=== PATIENT | female | born 1965 | race Hispanic/Latino ===

== ENCOUNTER 2017-10-16 15:29 | Emergency (ER) | payer OTHER ==
[2017-10-16 15:47] LABS: BASOPHILS % (AUTO) 1.3 % (0.0-5.0); EOSINOPHILS % (AUTO) 1.8 % (0.0-8.0); HEMATOCRIT 31.5 % (36-48); LYMPHOCYTES % (AUTO) 15.9 % (21.0-51.0); MEAN CORPUSCULAR HEMOGLOBIN 36.7 pg (27.0-33.0); MEAN CORPUSCULAR HGB CONC 35.3 g/dL (32.0-36.0); MEAN CORPUSCULAR VOLUME 103.7 fL (79-99); MONOCYTES % (AUTO) 9.5 % (3.0-13.0); NEUTROPHILS % (AUTO) 71.5 % (40.0-77.0); PLATELET COUNT (AUTO) 94 K/uL (130-400); RED BLOOD CELL COUNT(AUTO) 3.04 MIL/uL (4.00-5.50); RED CELL DISTRIBUTION WIDTH 15.6 % (11.0-15.5)
[2017-10-16 16:20] LABS: CREATININE 0.6 mg/dL (0.5-1.5); POTASSIUM 3.8 mmol/L (3.5-5.1)
[2017-10-16 16:28] LABS: ALBUMIN 1.7 g/dL (3.5-5.0); BILIRUBIN,TOTAL 7.1 mg/dL (0.2-1.0); TOTAL PROTEIN, SERUM 7.4 g/dL (6.0-8.3)
[2017-10-16 16:42] LABS: INR 1.88 (0.85-1.15); PARTIAL THROMBOPLASTIN TIME 43.1 SEC (26.3-35.5); PROTHROMBIN TIME 19.5 SEC (9.6-11.6)
[2017-10-16] MEDS ORDERED: IOPAMIDOL-370 75 ML VIAL IV ONE (18:44)
[2018-01-12] MEDS ORDERED: SPIR50TA3 PO (17:17)
== END 2017-10-16 21:43 | disposition home or self-care (01) ==
LOC: EDH 15:29
DX: K74.69 Other cirrhosis of liver (principal); R18.8 Other ascites; K80.50 Calculus of bile duct without cholangitis or cholecystitis without obstruction; Z88.6 Allergy status to analgesic agent; Z79.899 Other long term (current) drug therapy; Z90.722 Acquired absence of ovaries, bilateral
CPT/HCPCS: 36415; 74177; 76700; 80053; 82140; 84484; 85025; 85610; 85730; 93005; 99285; Q9967

== ENCOUNTER 2017-10-23 00:11 | Inpatient (IN) | payer OTHER ==
[~2017-10-23] VITALS: Ht 165.1 cm; Wt 111.0 kg
[2017-10-23] MEDS ORDERED: SODIUM CHLORIDE 0.9% 1000ML 1,000 ML IV ONE (01:16)
[2017-10-23] MEDS ORDERED: PANTOPRAZOLE SODIUM 40 MG TABLET.DR PO ONE (01:16)
[2017-10-23 01:20] LABS: RED CELL DISTRIBUTION WIDTH 15.4 % (11.0-15.5)
[2017-10-23 01:26] LABS: BASOPHILS % (AUTO) 1.4 % (0.0-5.0); EOSINOPHILS % (AUTO) 3.4 % (0.0-8.0); HEMATOCRIT 29.7 % (36-48); LYMPHOCYTES % (AUTO) 19.2 % (21.0-51.0); MEAN CORPUSCULAR HEMOGLOBIN 36.2 pg (27.0-33.0); MEAN CORPUSCULAR VOLUME 103.5 fL (79-99); MONOCYTES % (AUTO) 12.2 % (3.0-13.0); NEUTROPHILS % (AUTO) 63.8 % (40.0-77.0); PLATELET COUNT (AUTO) 97 K/uL (130-400); RED BLOOD CELL COUNT(AUTO) 2.87 MIL/uL (4.00-5.50); WHITE BLOOD COUNT (AUTO) 7.2 K/uL (4.8-10.8)
[2017-10-23 01:31] LABS: CREATININE 0.6 mg/dL (0.5-1.5); INR 1.9 (0.85-1.15); PARTIAL THROMBOPLASTIN TIME 47.1 SEC (26.3-35.5); POTASSIUM 3.6 mmol/L (3.5-5.1); PROTHROMBIN TIME 19.7 SEC (9.6-11.6)
[2017-10-23 01:36] LABS: ALBUMIN 1.7 g/dL (3.5-5.0); BILIRUBIN,TOTAL 6.6 mg/dL (0.2-1.0); TOTAL PROTEIN, SERUM 7.5 g/dL (6.0-8.3)
[2017-10-23 03:48] VITALS: BP 125/85
[2017-10-23] MEDS ORDERED: AMOX500C2 PO (05:43)
[2017-10-23] MEDS ORDERED: SODIUM CHLORIDE 0.9% 1000ML 1,000 ML IV SCH (05:49)
[2017-10-23] MEDS ORDERED: MEPERIDINE-PF 25 MG/ML SYG IV PRN (06:00)
[2017-10-23 08:00] VITALS: BP 114/59
[2017-10-23 11:31] VITALS: BP 116/76
[2017-10-23 12:03] LABS: BASOPHILS % (AUTO) 1.1 % (0.0-5.0); EOSINOPHILS % (AUTO) 3.5 % (0.0-8.0); HEMATOCRIT 26.3 % (36-48); LYMPHOCYTES % (AUTO) 22.3 % (21.0-51.0); MEAN CORPUSCULAR HEMOGLOBIN 37.3 pg (27.0-33.0); MEAN CORPUSCULAR HGB CONC 36.4 g/dL (32.0-36.0); MEAN CORPUSCULAR VOLUME 102.5 fL (79-99); MONOCYTES % (AUTO) 13.8 % (3.0-13.0); NEUTROPHILS % (AUTO) 59.3 % (40.0-77.0); PLATELET COUNT (AUTO) 84 K/uL (130-400); RED BLOOD CELL COUNT(AUTO) 2.56 MIL/uL (4.00-5.50); RED CELL DISTRIBUTION WIDTH 15.4 % (11.0-15.5); WHITE BLOOD COUNT (AUTO) 6.2 K/uL (4.8-10.8)
[2017-10-23] MEDS: PANTOPRAZOLE 40 MG/VIAL IVP SCH (12:16)
[2017-10-23] MEDS: PHYTONADIONE 10 MG/1 ML AMP SQ SCH ×2 (12:38→21:20)
[2017-10-23 15:36] VITALS: BP 137/75
[2017-10-23 19:00] VITALS: BP 125/68
[2017-10-23 23:00] VITALS: BP 105/58
[2017-10-24] MEDS: DEXTROSE 5 % AND 0.9 % NACL 1,000 ML IV SCH ×2 (00:07→11:27)
[2017-10-24 03:00] VITALS: BP 128/73
[2017-10-24 04:11] LABS: HEMATOCRIT 25.5 % (36-48); MEAN CORPUSCULAR HEMOGLOBIN 36.3 pg (27.0-33.0); MEAN CORPUSCULAR VOLUME 103.8 fL (79-99); PLATELET COUNT (AUTO) 89 K/uL (130-400); RED BLOOD CELL COUNT(AUTO) 2.46 MIL/uL (4.00-5.50); RED CELL DISTRIBUTION WIDTH 15.5 % (11.0-15.5); WHITE BLOOD COUNT (AUTO) 7.6 K/uL (4.8-10.8)
[2017-10-24 04:13] LABS: INR 1.92 (0.85-1.15); PARTIAL THROMBOPLASTIN TIME 48.7 SEC (26.3-35.5); PROTHROMBIN TIME 19.9 SEC (9.6-11.6)
[2017-10-24 04:20] LABS: CREATININE 0.7 mg/dL (0.5-1.5); POTASSIUM 3.5 mmol/L (3.5-5.1)
[2017-10-24 05:21] LABS: EOSINOPHILS % (MANUAL) 5 % (1-6); LYMPHOCYTES % (MANUAL) 19 % (22-44); MAN.DIFF COMMENT-IMPRESSION MANUAL DIFFERENTIAL; MONOCYTES % (MANUAL) 7 % (2-9); REACTIVE LYMPHOCYTES 3 % (0-0); SEGMENTED NEUTROPHILS % 66 % (40-70)
[2017-10-24] MEDS ORDERED: POTASSIUM CHLORIDE 20MEQ/100ML 100 ML IV PRN (07:00)
[2017-10-24] MEDS ORDERED: POTASSIUM CHLORIDE 10% ELIXIR 20 MEQ/15 ML UDCUP PO PRN (07:00)
[2017-10-24] MEDS ORDERED: POTASSIUM CHLORIDE 20 MEQ ERTAB PO PRN (07:00)
[2017-10-24] MEDS ORDERED: LIDOCAINE HCL-MPF 1% 2ML VIAL IVP PRN (07:00)
[2017-10-24 07:40] VITALS: BP 121/57
[2017-10-24] MEDS: PANTOPRAZOLE 40 MG/VIAL IVP SCH (11:15)
[2017-10-24] MEDS: PHYTONADIONE 10 MG/1 ML AMP SQ SCH (11:17)
[2017-10-24 11:49] VITALS: BP 132/82
[2017-10-24] MEDS ORDERED: GUAIFENESIN SUGAR-FREE 100 MG/5 ML UDCUP PO PRN (13:15)
[2017-10-24] MEDS ORDERED: AMOXICILLIN 500 MG CAPSULE PO SCH (14:00)
[2017-10-24] MEDS ORDERED: NEOMYCIN/POLYMYXIN/HC OTIC SUSP 10ML BOTTLE AU SCH (14:00)
[2018-01-12] MEDS ORDERED: SPIR50TA3 PO (17:17)
== END 2017-10-24 17:54 | disposition home or self-care (01) | DRG 920 ==
LOC: EDH 00:11 → 3BH 00:12
PROVIDERS: ADMIT Family Medicine; ATTEND Family Medicine
DX: K91.840 Postprocedural hemorrhage of a digestive system organ or structure following a digestive system procedure (principal); D68.9 Coagulation defect, unspecified; D69.6 Thrombocytopenia, unspecified; K70.30 Alcoholic cirrhosis of liver without ascites; D64.9 Anemia, unspecified; Y83.8 Other surgical procedures as the cause of abnormal reaction of the patient, or of later complication, without mention of misadventure at the time of the procedure; H92.20 Otorrhagia, unspecified ear; K64.9 Unspecified hemorrhoids; Z91.19 Patient's noncompliance with other medical treatment and regimen
CPT/HCPCS: 36415; 80048; 80053; 82270; 85025; 85610; 85730; 86850; 86900; 86901; C9113; J3430; J7030; J7042

== ENCOUNTER 2017-11-10 13:32 | Inpatient (IN) | payer OTHER ==
[~2017-11-10] VITALS: Ht 162.6 cm; Wt 110.6 kg
[~2017-11-10 13:32] MED LIST: AMOX500C2 PO
[2017-11-10 14:30] LABS: INR 1.97 (0.85-1.15); PARTIAL THROMBOPLASTIN TIME 46.8 SEC (26.3-35.5); PROTHROMBIN TIME 20.4 SEC (9.6-11.6)
[2017-11-10 14:39] LABS: ALBUMIN 1.8 g/dL (3.5-5.0); BILIRUBIN,TOTAL 12.9 mg/dL (0.2-1.0); CREATINE KINASE MB 0.6 ng/mL (0.5-3.6); CREATININE 0.8 mg/dL (0.5-1.5); TOTAL PROTEIN, SERUM 7.9 g/dL (6.0-8.3)
[2017-11-10 14:48] LABS: BASOPHILS % (AUTO) 0.6 % (0.0-5.0); EOSINOPHILS % (AUTO) 1.2 % (0.0-8.0); HEMATOCRIT 30.4 % (36-48); LYMPHOCYTES % (AUTO) 10.2 % (21.0-51.0); MEAN CORPUSCULAR HEMOGLOBIN 36.2 pg (27.0-33.0); MEAN CORPUSCULAR VOLUME 103.4 fL (79-99); MONOCYTES % (AUTO) 12.1 % (3.0-13.0); NEUTROPHILS % (AUTO) 75.9 % (40.0-77.0); NUCLEATED RED BLOOD CELLS 0.1 % (0.0-0.19); PLATELET COUNT (AUTO) 85 K/uL (130-400); RED BLOOD CELL COUNT(AUTO) 2.94 MIL/uL (4.00-5.50); RED CELL DISTRIBUTION WIDTH 16.2 % (11.0-15.5); WHITE BLOOD COUNT (AUTO) 11.2 K/uL (4.8-10.8)
[2017-11-10 14:48] LABS: POTASSIUM 2.5 mmol/L (3.5-5.1)
[2017-11-10] MEDS ORDERED: PHYTONADIONE 10 MG/1 ML AMP ONE (17:32)
[2017-11-10] MEDS ORDERED: CEFTRIAXONE SODIUM 1 GM ONE (17:32)
[2017-11-10] MEDS ORDERED: LEVOFLOXACIN 500 MG TABLET ONE (17:32)
[2017-11-10] MEDS ORDERED: FAMOTIDINE 20MG TAB 20 MG TAB ONE (21:46)
[2017-11-10] MEDS ORDERED: ALPRAZOLAM 0.25 MG TABLET ONE (21:47)
[2017-11-10] MEDS ORDERED: SODIUM CHLORIDE 0.9% 10 ML VIAL IVP SCH (23:45)
[2017-11-10] MEDS ORDERED: DEXTROSE 50%-WATER 50 ML DISP.SYRIN IV PRN (23:45)
[2017-11-10] MEDS ORDERED: ALPRAZOLAM 0.25 MG TABLET PO SCH (23:45)
[2017-11-10] MEDS ORDERED: ONDANSETRON HCL 4 MG/2 ML VIAL IVP PRN (23:45)
[2017-11-10] MEDS ORDERED: GLUCAGON 1MG KIT 1 MG ML IM PRN (23:45)
[2017-11-11] VITALS (14 sets, daily range): BP systolic 116–146; BP diastolic 52–75
[2017-11-11] MEDS ORDERED: TURM500C9 PO (02:12)
[2017-11-11] MEDS ORDERED: MILK175C4 PO (02:12)
[2017-11-11] MEDS: LIDOCAINE HCL-MPF 1% 2ML VIAL IJ PRN ×2 (03:12→09:45)
[2017-11-11] MEDS: POTASSIUM CHLORIDE 20MEQ/100ML 100 ML IV PRN ×2 (03:12→09:45)
[2017-11-11] MEDS: LACTULOSE 20 GM/30 ML UDCUP PO PRN ×2 (03:13→07:52)
[2017-11-11 06:18] LABS: INR 2.02 (0.85-1.15); PROTHROMBIN TIME 20.9 SEC (9.6-11.6)
[2017-11-11] MEDS ORDERED: FAMOTIDINE 20MG TAB 20 MG TAB PO SCH (09:00)
[2017-11-11 15:06] LABS: HEMATOCRIT 27.3 % (36-48); MEAN CORPUSCULAR HEMOGLOBIN 37.2 pg (27.0-33.0); MEAN CORPUSCULAR HGB CONC 36.4 g/dL (32.0-36.0); MEAN CORPUSCULAR VOLUME 102.1 fL (79-99); NUCLEATED RED BLOOD CELLS 0.2 % (0.0-0.19); PLATELET COUNT (AUTO) 91 K/uL (130-400); RED BLOOD CELL COUNT(AUTO) 2.67 MIL/uL (4.00-5.50); RED CELL DISTRIBUTION WIDTH 16.3 % (11.0-15.5); WHITE BLOOD COUNT (AUTO) 11.3 K/uL (4.8-10.8)
[2017-11-11 15:15] LABS: CREATININE 0.8 mg/dL (0.5-1.5)
[2017-11-11 15:27] LABS: INR 2.02 (0.85-1.15); PROTHROMBIN TIME 20.9 SEC (9.6-11.6)
[2017-11-11] MEDS ORDERED: ZOSYN 3.375GM+NS 50ML 50 ML IV SCH (15:45)
[2017-11-11] MEDS ORDERED: SODIUM CHLORIDE 0.9% 500ML 500 ML IV ONE (16:07)
[2017-11-11 16:18] LABS: LYMPHOCYTES % (MANUAL) 5 % (22-44); MAN.DIFF COMMENT-IMPRESSION MANUAL DIFFERENTIAL; METAMYELOCYTES % 1 % (0-0); MONOCYTES % (MANUAL) 7 % (2-9); SEGMENTED NEUTROPHILS % 87 % (40-70)
[2017-11-11 16:19] LABS: PLATELET MORPHOLOGY COMMENT DECREASED
[2017-11-11] MEDS ORDERED: ALBUMIN (HUMAN) 25% 200 ML IV ONE (18:30)
[2017-11-11 21:14] LABS: APPEARANCE BODY FLUID SLIGHTLY CLOUDY (CLEAR); COLOR,BODY FLUID YELLOW (LT YELLOW); SPECIMENTYPE,BODY FLUID ASCITES; TOTAL VOLUME,BODY FLUID 1000 mL
[2017-11-11 21:15] LABS: BODY FLUID RBC 375 /cu. mm.; BODY FLUID WBC 253 /cu. mm.
[2017-11-11 21:37] LABS: BF LYMPHOCYTE 28 %; BF MESOTHELIAL 2 %
[2017-11-11] MEDS: SUCRALFATE 1 GM TABLET PO SCH (21:47)
[2017-11-11] MEDS: MEROPENEM 1 GM VIAL IVP SCH (23:59)
[2017-11-12] VITALS: BP 119/60
[2017-11-12 04:00] VITALS: BP 107/54
[2017-11-12 05:04] LABS: HEMATOCRIT 23.9 % (36-48); MEAN CORPUSCULAR HEMOGLOBIN 36.6 pg (27.0-33.0); MEAN CORPUSCULAR HGB CONC 35.8 g/dL (32.0-36.0); MEAN CORPUSCULAR VOLUME 102.2 fL (79-99); NUCLEATED RED BLOOD CELLS 0.1 % (0.0-0.19); PLATELET COUNT (AUTO) 82 K/uL (130-400); RED BLOOD CELL COUNT(AUTO) 2.34 MIL/uL (4.00-5.50); RED CELL DISTRIBUTION WIDTH 16.2 % (11.0-15.5); WHITE BLOOD COUNT (AUTO) 9.3 K/uL (4.8-10.8)
[2017-11-12 05:09] LABS: INR 1.83 (0.85-1.15)
[2017-11-12 05:10] LABS: CREATININE 0.7 mg/dL (0.5-1.5)
[2017-11-12 05:19] LABS: BAND NEUTROPHILS % (MANUAL) 2 % (0-2); BASOPHILS % (MANUAL) 1 % (0-2); EOSINOPHILS % (MANUAL) 1 % (1-6); LYMPHOCYTES % (MANUAL) 16 % (22-44); MAN.DIFF COMMENT-IMPRESSION MANUAL DIFFERENTIAL; MONOCYTES % (MANUAL) 3 % (2-9); PLATELET MORPHOLOGY COMMENT DECREASED; SEGMENTED NEUTROPHILS % 77 % (40-70)
[2017-11-12 05:26] LABS: POTASSIUM 2.5 mmol/L (3.5-5.1)
[2017-11-12] MEDS: POTASSIUM CHLORIDE 20MEQ/100ML 100 ML IV PRN ×2 (05:36→09:11)
[2017-11-12] MEDS: POTASSIUM CHLORIDE 20 MEQ ERTAB PO PRN ×3 (05:37→13:00)
[2017-11-12] MEDS: LIDOCAINE HCL-MPF 1% 2ML VIAL IJ PRN ×2 (05:37→09:10)
[2017-11-12 08:05] VITALS: BP 110/63
[2017-11-12] MEDS: SUCRALFATE 1 GM TABLET PO SCH ×3 (09:09→20:18)
[2017-11-12] MEDS: PANTOPRAZOLE SODIUM 40 MG TABLET.DR PO SCH (09:09)
[2017-11-12] MEDS: MEROPENEM 1 GM VIAL IVP SCH ×2 (09:11→17:13)
[2017-11-12 12:04] VITALS: BP 124/69
[2017-11-12] MEDS: MAGNESIUM 2GM PREMIX 50ML 50 ML IV SCH (14:58)
[2017-11-12 16:41] VITALS: BP 124/63
[2017-11-12] MEDS: POTASSIUM CHLORIDE 10% ELIXIR 20 MEQ/15 ML UDCUP PO PRN (17:14)
[2017-11-12 20:00] VITALS: BP 114/66
[2017-11-13] VITALS: BP 126/65
[2017-11-13] MEDS: MEROPENEM 1 GM VIAL IVP SCH ×4 (00:03→23:42)
[2017-11-13 04:00] VITALS: BP 125/65
[2017-11-13] MEDS ORDERED: ONDANSETRON HCL MDV 20ML 2 MG/ML VIAL ONE (04:28)
[2017-11-13 05:01] LABS: HEMATOCRIT 25.4 % (36-48); MEAN CORPUSCULAR HEMOGLOBIN 37.9 pg (27.0-33.0); MEAN CORPUSCULAR HGB CONC 36.4 g/dL (32.0-36.0); MEAN CORPUSCULAR VOLUME 104.2 fL (79-99); NUCLEATED RED BLOOD CELLS 0.2 % (0.0-0.19); PLATELET COUNT (AUTO) 94 K/uL (130-400); RED BLOOD CELL COUNT(AUTO) 2.44 MIL/uL (4.00-5.50); RED CELL DISTRIBUTION WIDTH 16.3 % (11.0-15.5); WHITE BLOOD COUNT (AUTO) 13.2 K/uL (4.8-10.8)
[2017-11-13 05:06] LABS: CREATININE 0.7 mg/dL (0.5-1.5); MAGNESIUM 1.8 mg/dL (1.80-2.40)
[2017-11-13 05:16] LABS: BAND NEUTROPHILS % (MANUAL) 1 % (0-2); LYMPHOCYTES % (MANUAL) 11 % (22-44); MAN.DIFF COMMENT-IMPRESSION MANUAL DIFFERENTIAL; MONOCYTES % (MANUAL) 10 % (2-9); SEGMENTED NEUTROPHILS % 78 % (40-70)
[2017-11-13 05:17] LABS: PLATELET MORPHOLOGY COMMENT DECREASED
[2017-11-13] MEDS: POTASSIUM CHLORIDE 20MEQ/100ML 100 ML IV PRN (05:58)
[2017-11-13] MEDS: LIDOCAINE HCL-MPF 1% 2ML VIAL IJ PRN (05:58)
[2017-11-13] MEDS: POTASSIUM CHLORIDE 10% ELIXIR 20 MEQ/15 ML UDCUP PO PRN ×4 (05:59→20:25)
[2017-11-13 08:11] VITALS: BP 103/47
[2017-11-13] MEDS: SUCRALFATE 1 GM TABLET PO SCH (09:00)
[2017-11-13] MEDS: PANTOPRAZOLE SODIUM 40 MG TABLET.DR PO SCH (09:26)
[2017-11-13] MEDS: MAGNESIUM 2GM PREMIX 50ML 50 ML IV SCH (09:59)
[2017-11-13] MEDS ORDERED: MAGNESIUM 2GM PREMIX 50ML 50 ML IV SCH (10:00)
[2017-11-13] MEDS ORDERED: PHARMACY COMMUNICATION MISC SCH ×2 (10:00→13:30)
[2017-11-13 12:00] VITALS: BP 103/45
[2017-11-13] MEDS: SUCRALFATE 1 GM/10 ML PO SCH ×2 (12:48→20:24)
[2017-11-13] MEDS: MEPERIDINE HCL/PF 25 MG/0.5 ML AMPUL IVP PRN ×3 (13:00→23:43)
[2017-11-13] MEDS ORDERED: MAGIC MOUTH WASH PO PRN ×3 (13:45)
[2017-11-13 16:00] VITALS: BP 114/63
[2017-11-13] MEDS ORDERED: MAG HYDROX/AL HYDROX/SIMETH ES 30 ML SUSP UDCUP ONE (17:50)
[2017-11-13] MEDS ORDERED: MAG HYDROX/AL HYDROX/SIMETH ES 30 ML SUSP UDCUP PO PRN (18:00)
[2017-11-13 19:48] VITALS: BP 120/65
[2017-11-14] VITALS (7 sets, daily range): BP systolic 101–129; BP diastolic 48–71
[2017-11-14 04:45] LABS: CREATININE 0.8 mg/dL (0.5-1.5); POTASSIUM 4.1 mmol/L (3.5-5.1)
[2017-11-14 04:56] LABS: MEAN CORPUSCULAR HEMOGLOBIN 36.3 pg (27.0-33.0); MEAN CORPUSCULAR HGB CONC 34.6 g/dL (32.0-36.0); NUCLEATED RED BLOOD CELLS 0.1 % (0.0-0.19); PLATELET COUNT (AUTO) 104 K/uL (130-400); RED BLOOD CELL COUNT(AUTO) 2.86 MIL/uL (4.00-5.50); RED CELL DISTRIBUTION WIDTH 16.1 % (11.0-15.5); WHITE BLOOD COUNT (AUTO) 12.5 K/uL (4.8-10.8)
[2017-11-14 05:01] LABS: BAND NEUTROPHILS % (MANUAL) 3 % (0-2); BASOPHILS % (MANUAL) 1 % (0-2); EOSINOPHILS % (MANUAL) 8 % (1-6); LYMPHOCYTES % (MANUAL) 10 % (22-44); MAN.DIFF COMMENT-IMPRESSION MANUAL DIFFERENTIAL; MONOCYTES % (MANUAL) 3 % (2-9); PLATELET MORPHOLOGY COMMENT DECREASED; SEGMENTED NEUTROPHILS % 75 % (40-70)
[2017-11-14] MEDS: PANTOPRAZOLE SODIUM 40 MG TABLET.DR PO SCH (08:12)
[2017-11-14] MEDS: MEROPENEM 1 GM VIAL IVP SCH ×2 (08:12→15:46)
[2017-11-14] MEDS: MEPERIDINE HCL/PF 25 MG/0.5 ML AMPUL IVP PRN ×2 (08:13→16:03)
[2017-11-14] MEDS: SUCRALFATE 1 GM/10 ML PO SCH ×3 (11:04→20:47)
[2017-11-14] MEDS: MAGNESIUM 2GM PREMIX 50ML 50 ML IV SCH (12:09)
[2017-11-14] MEDS ORDERED: MEPERIDINE-PF 25 MG/ML SYG ONE (20:35)
[2017-11-15] MEDS: MEROPENEM 1 GM VIAL IVP SCH ×3 (00:30→16:08)
[2017-11-15 04:25] VITALS: BP 112/51
[2017-11-15 04:55] LABS: HEMATOCRIT 25.7 % (36-48); MEAN CORPUSCULAR HEMOGLOBIN 38.3 pg (27.0-33.0); MEAN CORPUSCULAR HGB CONC 36.7 g/dL (32.0-36.0); MEAN CORPUSCULAR VOLUME 104.3 fL (79-99); NUCLEATED RED BLOOD CELLS 0.1 % (0.0-0.19); PLATELET COUNT (AUTO) 87 K/uL (130-400); RED BLOOD CELL COUNT(AUTO) 2.46 MIL/uL (4.00-5.50); RED CELL DISTRIBUTION WIDTH 16.4 % (11.0-15.5); WHITE BLOOD COUNT (AUTO) 12.1 K/uL (4.8-10.8)
[2017-11-15 05:19] LABS: CREATININE 0.7 mg/dL (0.5-1.5); MAGNESIUM 1.9 mg/dL (1.80-2.40)
[2017-11-15 05:30] LABS: EOSINOPHILS % (MANUAL) 6 % (1-6); LYMPHOCYTES % (MANUAL) 11 % (22-44); MAN.DIFF COMMENT-IMPRESSION MANUAL DIFFERENTIAL; MONOCYTES % (MANUAL) 9 % (2-9); PLATELET MORPHOLOGY COMMENT DECREASED; SEGMENTED NEUTROPHILS % 74 % (40-70)
[2017-11-15] MEDS: MEPERIDINE HCL/PF 25 MG/0.5 ML AMPUL IVP PRN ×3 (06:43→22:55)
[2017-11-15 08:00] VITALS: BP 112/58
[2017-11-15] MEDS: SUCRALFATE 1 GM/10 ML PO SCH ×3 (08:27→22:51)
[2017-11-15] MEDS: PANTOPRAZOLE SODIUM 40 MG TABLET.DR PO SCH (08:30)
[2017-11-15] MEDS: ALBUMIN (HUMAN) 25% 100 ML IV SCH (10:20)
[2017-11-15] MEDS: LACTULOSE 20 GM/30 ML UDCUP PO SCH (10:20)
[2017-11-15] MEDS: FUROSEMIDE 10 MG/ML 2ML VIAL IV SCH (11:19)
[2017-11-15 12:00] VITALS: BP 118/64
[2017-11-15] MEDS: MAGNESIUM 2GM PREMIX 50ML 50 ML IV SCH (13:17)
[2017-11-15 16:00] VITALS: BP 118/68
[2017-11-15 20:20] VITALS: BP 119/64
[2017-11-15 23:46] VITALS: BP 115/63
[2017-11-16] MEDS: MEROPENEM 1 GM VIAL IVP SCH ×3 (00:33→17:04)
[2017-11-16 04:19] VITALS: BP 118/58
[2017-11-16] MEDS: MEPERIDINE HCL/PF 25 MG/0.5 ML AMPUL IVP PRN ×3 (04:41→19:07)
[2017-11-16 05:45] LABS: HEMATOCRIT 26.8 % (36-48); MEAN CORPUSCULAR HEMOGLOBIN 36.6 pg (27.0-33.0); MEAN CORPUSCULAR HGB CONC 35.1 g/dL (32.0-36.0); MEAN CORPUSCULAR VOLUME 104.1 fL (79-99); PLATELET COUNT (AUTO) 88 K/uL (130-400); RED BLOOD CELL COUNT(AUTO) 2.58 MIL/uL (4.00-5.50); RED CELL DISTRIBUTION WIDTH 16.8 % (11.0-15.5)
[2017-11-16 06:02] LABS: ALBUMIN 2.1 g/dL (3.5-5.0); CREATININE 0.6 mg/dL (0.5-1.5); PHOSPHORUS 2.5 mg/dL (2.5-4.9); POTASSIUM 3.4 mmol/L (3.5-5.1)
[2017-11-16] MEDS: POTASSIUM CHLORIDE 20 MEQ ERTAB PO PRN (06:48)
[2017-11-16 07:34] VITALS: BP 113/51
[2017-11-16] MEDS: ALBUMIN (HUMAN) 25% 100 ML IV SCH (08:12)
[2017-11-16] MEDS: LACTULOSE 20 GM/30 ML UDCUP PO SCH (08:12)
[2017-11-16] MEDS: FUROSEMIDE 10 MG/ML 2ML VIAL IV SCH (08:12)
[2017-11-16] MEDS: PANTOPRAZOLE SODIUM 40 MG TABLET.DR PO SCH (08:12)
[2017-11-16] MEDS: SUCRALFATE 1 GM/10 ML PO SCH ×3 (08:13→21:22)
[2017-11-16] MEDS: POTASSIUM CHLORIDE 10% ELIXIR 20 MEQ/15 ML UDCUP PO PRN (08:18)
[2017-11-16 08:45] LABS: EOSINOPHILS % (MANUAL) 2 % (1-6); LYMPHOCYTES % (MANUAL) 15 % (22-44); MAN.DIFF COMMENT-IMPRESSION MANUAL DIFFERENTIAL; MONOCYTES % (MANUAL) 6 % (2-9); PLATELET MORPHOLOGY COMMENT DECREASED; SEGMENTED NEUTROPHILS % 77 % (40-70)
[2017-11-16] MEDS ORDERED: FUROSEMIDE 10 MG/ML 4ML VIAL IV SCH (08:45)
[2017-11-16] MEDS: FUROSEMIDE 40 MG TABLET PO SCH ×2 (09:30→21:23)
[2017-11-16 11:34] VITALS: BP 112/60
[2017-11-16] MEDS: POTASSIUM CHLORIDE 20MEQ/100ML 100 ML IV PRN (11:36)
[2017-11-16] MEDS: LIDOCAINE HCL-MPF 1% 2ML VIAL IJ PRN (11:36)
[2017-11-16] MEDS: MAGNESIUM 2GM PREMIX 50ML 50 ML IV SCH (14:46)
[2017-11-16 17:07] VITALS: BP 121/68
[2017-11-16 20:00] VITALS: BP 116/60
[2017-11-16] MEDS: SPIRONOLACTONE 25 MG TAB PO SCH (21:23)
[2017-11-17] VITALS (7 sets, daily range): BP systolic 104–119; BP diastolic 51–74
[2017-11-17] MEDS: MEROPENEM 1 GM VIAL IVP SCH ×4 (00:18→23:35)
[2017-11-17] MEDS: MEPERIDINE HCL/PF 25 MG/0.5 ML AMPUL IVP PRN ×3 (00:25→14:39)
[2017-11-17 05:33] LABS: HEMATOCRIT 25.6 % (36-48); MEAN CORPUSCULAR HEMOGLOBIN 38.5 pg (27.0-33.0); MEAN CORPUSCULAR HGB CONC 36.8 g/dL (32.0-36.0); MEAN CORPUSCULAR VOLUME 104.7 fL (79-99); NUCLEATED RED BLOOD CELLS 0.1 % (0.0-0.19); PLATELET COUNT (AUTO) 90 K/uL (130-400); RED BLOOD CELL COUNT(AUTO) 2.45 MIL/uL (4.00-5.50); RED CELL DISTRIBUTION WIDTH 16.9 % (11.0-15.5); WHITE BLOOD COUNT (AUTO) 9.7 K/uL (4.8-10.8)
[2017-11-17 05:50] LABS: CREATININE 0.7 mg/dL (0.5-1.5); POTASSIUM 3.4 mmol/L (3.5-5.1)
[2017-11-17 06:13] LABS: BASOPHILS % (MANUAL) 3 % (0-2); EOSINOPHILS % (MANUAL) 2 % (1-6); LYMPHOCYTES % (MANUAL) 14 % (22-44); MAN.DIFF COMMENT-IMPRESSION MANUAL DIFFERENTIAL; MONOCYTES % (MANUAL) 9 % (2-9); SEGMENTED NEUTROPHILS % 72 % (40-70)
[2017-11-17] MEDS: PANTOPRAZOLE SODIUM 40 MG TABLET.DR PO SCH (08:04)
[2017-11-17] MEDS: LACTULOSE 20 GM/30 ML UDCUP PO SCH (08:04)
[2017-11-17] MEDS: ALBUMIN (HUMAN) 25% 100 ML IV SCH (08:05)
[2017-11-17] MEDS: SUCRALFATE 1 GM/10 ML PO SCH ×3 (08:16→20:45)
[2017-11-17] MEDS: SPIRONOLACTONE 25 MG TAB PO SCH ×2 (08:16→20:44)
[2017-11-17] MEDS: FUROSEMIDE 40 MG TABLET PO SCH ×2 (08:17→20:44)
[2017-11-17] MEDS: POTASSIUM CHLORIDE 10% ELIXIR 20 MEQ/15 ML UDCUP PO PRN ×2 (13:08→16:30)
[2017-11-17 14:39] LABS: INR 1.94 (0.85-1.15); PARTIAL THROMBOPLASTIN TIME 52.3 SEC (26.3-35.5); PROTHROMBIN TIME 20.1 SEC (9.6-11.6)
[2017-11-17] MEDS ORDERED: MEPERIDINE-PF 25 MG/ML SYG ONE (21:28)
[2017-11-18 04:00] VITALS: BP 104/51
[2017-11-18] MEDS ORDERED: MEPERIDINE-PF 25 MG/ML SYG ONE ×2 (04:24→09:45)
[2017-11-18 05:43] LABS: HEMATOCRIT 25.6 % (36-48); MEAN CORPUSCULAR HEMOGLOBIN 36.8 pg (27.0-33.0); MEAN CORPUSCULAR HGB CONC 35.5 g/dL (32.0-36.0); MEAN CORPUSCULAR VOLUME 103.8 fL (79-99); NUCLEATED RED BLOOD CELLS 0.1 % (0.0-0.19); PLATELET COUNT (AUTO) 87 K/uL (130-400); RED BLOOD CELL COUNT(AUTO) 2.46 MIL/uL (4.00-5.50); RED CELL DISTRIBUTION WIDTH 16.9 % (11.0-15.5); WHITE BLOOD COUNT (AUTO) 9.1 K/uL (4.8-10.8)
[2017-11-18 05:50] LABS: CREATININE 0.7 mg/dL (0.5-1.5); POTASSIUM 3.6 mmol/L (3.5-5.1)
[2017-11-18 08:10] VITALS: BP 98/53
[2017-11-18] MEDS ORDERED: LEVO500T2 PO (08:56)
[2017-11-18] MEDS ORDERED: LACT PO (08:56)
[2017-11-18] MEDS ORDERED: FURO40TA7 PO (08:56)
[2017-11-18] MEDS ORDERED: SPIR25TA PO (08:56)
[2017-11-18] MEDS: SUCRALFATE 1 GM/10 ML PO SCH ×2 (09:37→14:00)
[2017-11-18] MEDS: MEROPENEM 1 GM VIAL IVP SCH (09:37)
[2017-11-18] MEDS: LACTULOSE 20 GM/30 ML UDCUP PO SCH (09:37)
[2017-11-18] MEDS: FUROSEMIDE 40 MG TABLET PO SCH (09:38)
[2017-11-18] MEDS: PANTOPRAZOLE SODIUM 40 MG TABLET.DR PO SCH (09:38)
[2017-11-18] MEDS: SPIRONOLACTONE 25 MG TAB PO SCH (09:38)
[2017-11-18] MEDS: ALBUMIN (HUMAN) 25% 100 ML IV SCH (09:38)
[2017-11-18] MEDS: POTASSIUM CHLORIDE 20 MEQ ERTAB PO PRN ×2 (09:46→10:02)
[2017-11-18] MEDS: MEPERIDINE HCL/PF 25 MG/0.5 ML AMPUL IVP PRN (09:47)
[2017-11-18 11:50] VITALS: BP 111/59
[2017-11-18] MEDS ORDERED: TRAM50TA2 PO (12:16)
[2018-01-12] MEDS ORDERED: SPIR50TA3 PO (17:17)
== END 2017-11-18 15:49 | disposition home or self-care (01) | DRG 442 ==
LOC: EDH 13:32 → EDHIP 13:33 → 4AH 11-11 01:04
PROVIDERS: ADMIT Internal Medicine Nephrology; ATTEND Internal Medicine Nephrology
PROC: 30233K1 Transfusion of Nonautologous Frozen Plasma into Peripheral Vein, Percutaneous Approach (ICD-10-PCS; 2017-11-10)
PROC: 0W9G30Z Drainage of Peritoneal Cavity with Drainage Device, Percutaneous Approach (ICD-10-PCS; principal; 2017-11-17)
DX: K71.7 Toxic liver disease with fibrosis and cirrhosis of liver (principal); R18.8 Other ascites; D68.9 Coagulation defect, unspecified; E83.42 Hypomagnesemia; E87.1 Hypo-osmolality and hyponatremia; E87.70 Fluid overload, unspecified; D63.8 Anemia in other chronic diseases classified elsewhere; E78.5 Hyperlipidemia, unspecified; E87.6 Hypokalemia; N28.9 Disorder of kidney and ureter, unspecified; T50.905A Adverse effect of unspecified drugs, medicaments and biological substances, initial encounter; Y92.89 Other specified places as the place of occurrence of the external cause; Z88.8 Allergy status to other drugs, medicaments and biological substances; Z80.3 Family history of malignant neoplasm of breast; Z83.3 Family history of diabetes mellitus; Z82.49 Family history of ischemic heart disease and other diseases of the circulatory system
CPT/HCPCS: 36415; 36430; 49083; 71045; 76705; 76770; 80048; 80053; 80069; 82140; 82550; 82553; 82948; 83735; 83930; 83935; 84484; 85025; 85027; 85610; 85730; 86850; 86900; 86901; 86927; 87071; 87205; 89051; 92610; 93005; A4218; J0696; J1940; J2175; J2185; J2543; J3430; J3475; J3480; J3490; J7040; P9017; P9046

== ENCOUNTER 2017-11-25 15:24 | Emergency (ER) | payer OTHER ==
[~2017-11-25 15:24] MED LIST changes: -AMOX500C2 PO; +FURO40TA7 PO; +LACT PO; +LEVO500T2 PO; +MILK175C4 PO; +SPIR25TA PO; +TRAM50TA2 PO; +TURM500C9 PO
[2018-01-12] MEDS ORDERED: SPIR50TA3 PO (17:17)
== END 2017-11-25 16:18 | disposition home or self-care (01) ==
LOC: EDH 15:24
DX: K74.60 Unspecified cirrhosis of liver (principal); R18.8 Other ascites; M79.89 Other specified soft tissue disorders; D64.9 Anemia, unspecified; Z98.890 Other specified postprocedural states
CPT/HCPCS: 99281

== ENCOUNTER 2018-01-12 01:03 | Inpatient (IN) | payer OTHER ==
[~2018-01-12] VITALS: Ht 170.2 cm; Wt 109.9 kg
[2018-01-12] MEDS ORDERED: SODIUM CHLORIDE 0.9% 1000ML 1,000 ML IV ONE ×3 (01:33→12:57)
[2018-01-12] MEDS ORDERED: ONDANSETRON HCL MDV 20ML 2 MG/ML VIAL ONE (01:33)
[2018-01-12 01:38] LABS: BASOPHILS % (AUTO) 0.3 % (0.0-5.0); EOSINOPHILS % (AUTO) 0.2 % (0.0-8.0); HEMATOCRIT 34.8 % (36-48); LYMPHOCYTES % (AUTO) 6.4 % (21.0-51.0); MEAN CORPUSCULAR HEMOGLOBIN 34.9 pg (27.0-33.0); MEAN CORPUSCULAR HGB CONC 34.2 g/dL (32.0-36.0); NEUTROPHILS % (AUTO) 90.1 % (40.0-77.0); NUCLEATED RED BLOOD CELLS 0.3 % (0.0-0.19); PLATELET COUNT (AUTO) 135 K/uL (130-400); RED BLOOD CELL COUNT(AUTO) 3.41 MIL/uL (4.00-5.50); RED CELL DISTRIBUTION WIDTH 16.2 % (11.0-15.5); WHITE BLOOD COUNT (AUTO) 7.4 K/uL (4.8-10.8)
[2018-01-12 01:42] LABS: ABG BASE EXCESS -4.9 mmol/L (-2.0-3.0); ABG HCO3 16.8 mmol/L (21.0-28.0); ABG OXYGEN SATURATION 98.7 % (95.0-99.0); ABG PCO2 24 mmHg (32-45)
[2018-01-12] MEDS ORDERED: ZOSYN 3.375GM+NS 50ML 50 ML IV ONE ×2 (01:42→12:55)
[2018-01-12 01:48] LABS: PARTIAL THROMBOPLASTIN TIME 50.4 SEC (26.3-35.5); PROTHROMBIN TIME 20.7 SEC (9.6-11.6)
[2018-01-12 02:29] LABS: B-TYPE NATRIURETIC PEPTIDE 305 pg/mL (0-100)
[2018-01-12 02:49] LABS: APPEARANCE,URINE Cloudy (CLEAR); BILIRUBIN,URINE Large (NEGATIVE); COLOR,URINE Dark Yellow (YELLOW); GLUCOSE, URINE (UA) Negative (NEGATIVE); KETONES,URINE Negative (NEGATIVE); LEUKOCYTE ESTERASE ,URINE Small (NEGATIVE); NITRATE,URINE Positive (NEGATIVE); OCCULT BLOOD,URINE Negative (NEGATIVE); PH,URINE 5.5 (5.0-8.0); PROTEIN,URINE Negative (NEGATIVE)
[2018-01-12 02:55] LABS: CREATININE 1.3 mg/dL (0.5-1.5); POTASSIUM 3.5 mmol/L (3.5-5.1)
[2018-01-12 03:00] LABS: ALBUMIN 1.7 g/dL (3.5-5.0); TOTAL PROTEIN, SERUM 6.9 g/dL (6.0-8.3)
[2018-01-12] MEDS ORDERED: IOPAMIDOL-370 75 ML VIAL IV ONE (03:04)
[2018-01-12 03:08] LABS: BACTERIA,URINE Few /HPF (None Seen); MUCUS,URINE Many LPF (None Seen); RBC,URINE None Seen /HPF (0-1); SQUAMOUS EPITHELIAL CELL,UR Moderate /HPF (0-2)
[2018-01-12] MEDS ORDERED: NOREPINEPHRINE BITARTRATE 1 MG/1 ML ML IV ONE ×3 (04:08→18:16)
[2018-01-12] MEDS ORDERED: PHYTONADIONE 10 MG/1 ML AMP ONE (05:17)
[2018-01-12 05:43] LABS: CREATINE KINASE MB 0.8 ng/mL (0.5-3.6); CREATINE KINASE, TOTAL 39 U/L (21-232); MYOGLOBIN 86 ng/mL (10-92); TROPONIN I < 0.04 ng/mL (0.00-0.06)
[2018-01-12] MEDS ORDERED: VANCOMYCIN 1GM+NS 250ML 250 ML IV ONE ×3 (05:45→08:58)
[2018-01-12] MEDS ORDERED: LORAZEPAM 2 MG/ML 1 ML VIAL ONE (06:22)
[2018-01-12] MEDS ORDERED: GLUCAGON 1MG KIT 1 MG ML IM PRN (08:15)
[2018-01-12] MEDS ORDERED: ACETAMINOPHEN 325 MG TAB PO PRN (08:15)
[2018-01-12] MEDS ORDERED: COMPOUND IV REFRIGERATED 1 EACH IVSOLN MISC PRN (08:15)
[2018-01-12] MEDS ORDERED: ONDANSETRON HCL 4 MG/2 ML VIAL IVP PRN (08:15)
[2018-01-12] MEDS ORDERED: DEXTROSE 50%-WATER 50 ML DISP.SYRIN IV PRN (08:15)
[2018-01-12] MEDS ORDERED: VANCOMYCIN PROTOCOL PER PHARMACY IV SCH (08:15)
[2018-01-12] MEDS ORDERED: NOREPINEPHRINE 4MG/NS 250ML 250 ML IV PRN (08:15)
[2018-01-12] MEDS ORDERED: HYDROMORPHONE HCL 0.5 MG/0.5 ML ML ONE (08:37)
[2018-01-12] MEDS ORDERED: LACTULOSE 20 GM/30 ML UDCUP ONE ×2 (08:38→12:54)
[2018-01-12] MEDS: PANTOPRAZOLE SODIUM 40 MG TABLET.DR PO SCH (09:00)
[2018-01-12] MEDS: ZOSYN 3.375GM+NS 50ML 50 ML IV SCH ×2 (09:00→17:00)
[2018-01-12] MEDS: THIAMINE HCL 100 MG TABLET PO SCH (09:00)
[2018-01-12] MEDS: PHYTONADIONE 10 MG/1 ML AMP SQ SCH (09:00)
[2018-01-12] MEDS: LACTULOSE 20 GM/30 ML UDCUP PO SCH ×3 (09:00→20:50)
[2018-01-12] MEDS ORDERED: ALBUMIN (HUMAN) 25% 100 ML IV ONE ×3 (09:37→16:00)
[2018-01-12] MEDS: ALBUMIN (HUMAN) 25% 100 ML IV SCH ×4 (10:00→21:02)
[2018-01-12] MEDS: INSULIN R PO SS1/2 SQ SCH ×3 (11:30→21:00)
[2018-01-12] MEDS ORDERED: DEXTROSE 50%-WATER 50 ML DISP.SYRIN IV ONE (12:00)
[2018-01-12] MEDS ORDERED: EPINEPHRINE 0.1 MG/ML 10 ML SYG IVP ONE (12:00)
[2018-01-12 12:36] LABS: INR 1.73 (0.85-1.15); PARTIAL THROMBOPLASTIN TIME 50.4 SEC (26.3-35.5)
[2018-01-12] MEDS ORDERED: THIAMINE HCL 100 MG TABLET ONE (12:55)
[2018-01-12] MEDS ORDERED: PANTOPRAZOLE SODIUM 40 MG TABLET.DR PO ONE (12:55)
[2018-01-12] MEDS ORDERED: SODIUM CHLORIDE 0.9% 250 ML IV ONE ×2 (14:23→18:17)
[2018-01-12] MEDS ORDERED: LIDOCAINE HCL 1% 20 ML VIAL ONE (14:32)
[2018-01-12] MEDS ORDERED: VASOPRESSIN IVP PRN (14:45)
[2018-01-12] MEDS ORDERED: SODIUM CHLORIDE 0.9% IVP PRN (14:45)
[2018-01-12] MEDS: PRENATAL VITAMIN RX TABLET PO SCH ×2 (15:51→16:03)
[2018-01-12] MEDS: SODIUM CHLORIDE 0.9% 1000ML 1,000 ML IV SCH (15:51)
[2018-01-12] MEDS: HYDROCORTISONE SOD SUCCINATE 100 MG/2 ML VIAL IV SCH ×2 (16:03→20:49)
[2018-01-12 16:06] LABS: ALBUMIN,BODY FLUID < 0.6 g/dL
[2018-01-12] MEDS ORDERED: PROP20TA7 PO (17:17)
[2018-01-12] MEDS ORDERED: SPIR50TA5 PO (17:17)
[2018-01-12] MEDS ORDERED: OMEP20CA10 PO (17:17)
[2018-01-12 18:07] LABS: APPEARANCE BODY FLUID CLOUDY (CLEAR); COLOR,BODY FLUID DARK YELLOW (LT YELLOW); SPECIMENTYPE,BODY FLUID PARACENTESIS; TOTAL VOLUME,BODY FLUID 10000 mL
[2018-01-12] MEDS ORDERED: NOREPINEPHRINE BITARTRATE 8 MG in DEXTROSE 5%-WATER 250 ML IV SCH (18:15)
[2018-01-12 18:22] LABS: BODY FLUID RBC 3025 /cu. mm.; BODY FLUID WBC 3039 /cu. mm.
[2018-01-12 18:25] LABS: BF LYMPHOCYTE 3 %
[2018-01-12 19:00] VITALS: BP 96/44
[2018-01-12 20:00] VITALS: BP 101/52
[2018-01-12] MEDS: VANCOMYCIN 1GM+NS 250ML IV SCH (20:49)
[2018-01-12 21:00] VITALS: BP 106/52
[2018-01-12] MEDS ORDERED: COMPOUND PO NARCOTIC 1 EACH PO SCH (21:00)
[2018-01-12 22:00] VITALS: BP 106/55
[2018-01-12 23:00] VITALS: BP 104/49
[2018-01-13] VITALS (9 sets, daily range): BP systolic 107–169; BP diastolic 55–97
[2018-01-13] MEDS: SODIUM CHLORIDE 0.9% 1000ML 1,000 ML IV SCH (00:42)
[2018-01-13] MEDS: ZOSYN 3.375GM+NS 50ML 50 ML IV SCH ×2 (00:42→07:47)
[2018-01-13] MEDS: ALBUMIN (HUMAN) 25% 100 ML IV SCH ×2 (01:00→05:17)
[2018-01-13] MEDS: LACTULOSE 20 GM/30 ML UDCUP PO SCH ×2 (02:03→08:57)
[2018-01-13] MEDS: HYDROCORTISONE SOD SUCCINATE 100 MG/2 ML VIAL IV SCH ×2 (02:03→07:46)
[2018-01-13] MEDS ORDERED: NOREPINEPHRINE BITARTRATE 1 MG/1 ML ML IV ONE ×2 (02:09→02:10)
[2018-01-13] MEDS ORDERED: SODIUM CHLORIDE 0.9% 250 ML IV ONE (02:11)
[2018-01-13] MEDS: HYDROMORPHONE HCL 0.5 MG/0.5 ML ML IVP PRN ×2 (03:24→06:31)
[2018-01-13] MEDS: INSULIN R PO SS1/2 SQ SCH (05:24)
[2018-01-13 06:37] LABS: BASOPHILS % (AUTO) 0.3 % (0.0-5.0); HEMATOCRIT 21.3 % (36-48); LYMPHOCYTES % (AUTO) 4.4 % (21.0-51.0); MEAN CORPUSCULAR HEMOGLOBIN 34.4 pg (27.0-33.0); MEAN CORPUSCULAR HGB CONC 33.5 g/dL (32.0-36.0); MEAN CORPUSCULAR VOLUME 102.8 fL (79-99); MONOCYTES % (AUTO) 5.9 % (3.0-13.0); NEUTROPHILS % (AUTO) 89.4 % (40.0-77.0); NUCLEATED RED BLOOD CELLS 0.2 % (0.0-0.19); PLATELET COUNT (AUTO) 113 K/uL (130-400); RED BLOOD CELL COUNT(AUTO) 2.08 MIL/uL (4.00-5.50); RED CELL DISTRIBUTION WIDTH 16.8 % (11.0-15.5); WHITE BLOOD COUNT (AUTO) 20.2 K/uL (4.8-10.8)
[2018-01-13 06:51] LABS: INR 3.06 (0.85-1.15); PARTIAL THROMBOPLASTIN TIME 83.7 SEC (26.3-35.5); PROTHROMBIN TIME 31.4 SEC (9.6-11.6)
[2018-01-13 06:53] LABS: ALBUMIN 3.3 g/dL (3.5-5.0); BILIRUBIN,TOTAL 9.7 mg/dL (0.2-1.0); CREATININE 1.1 mg/dL (0.5-1.5); MAGNESIUM 1.7 mg/dL (1.80-2.40); POTASSIUM 4.4 mmol/L (3.5-5.1); TOTAL PROTEIN, SERUM 6.4 g/dL (6.0-8.3)
[2018-01-13] MEDS: PHYTONADIONE 10 MG/1 ML AMP SQ SCH (07:47)
[2018-01-13] MEDS: VANCOMYCIN 1GM+NS 250ML IV SCH (07:48)
[2018-01-13] MEDS: THIAMINE HCL 100 MG TABLET PO SCH (08:57)
[2018-01-13] MEDS: PANTOPRAZOLE SODIUM 40 MG TABLET.DR PO SCH (08:57)
== END 2018-01-13 08:24 | disposition expired | DRG 871 ==
LOC: EDH 01:03 → EDHIP 01:04 → 2CH 15:09
PROVIDERS: ADMIT Internal Medicine Critical Care Medicine; ATTEND Internal Medicine Critical Care Medicine
PROC: 0W9G30Z Drainage of Peritoneal Cavity with Drainage Device, Percutaneous Approach (ICD-10-PCS; principal; 2018-01-12)
PROC: 05H633Z Insertion of Infusion Device into Left Subclavian Vein, Percutaneous Approach (ICD-10-PCS; 2018-01-12)
PROC: 30233L1 Transfusion of Nonautologous Fresh Plasma into Peripheral Vein, Percutaneous Approach (ICD-10-PCS; 2018-01-13)
PROC: 30233K1 Transfusion of Nonautologous Frozen Plasma into Peripheral Vein, Percutaneous Approach (ICD-10-PCS; 2018-01-13)
PROC: 5A09357 Assistance with Respiratory Ventilation, Less than 24 Consecutive Hours, Continuous Positive Airway Pressure (ICD-10-PCS; 2018-01-13)
PROC: 5A12012 Performance of Cardiac Output, Single, Manual (ICD-10-PCS; 2018-01-13)
DX: A41.9 Sepsis, unspecified organism (principal); R65.21 Severe sepsis with septic shock; N17.9 Acute kidney failure, unspecified; D68.9 Coagulation defect, unspecified; E66.01 Morbid (severe) obesity due to excess calories; K76.6 Portal hypertension; R18.8 Other ascites; K74.60 Unspecified cirrhosis of liver; Z68.37 Body mass index [BMI] 37.0-37.9, adult; Z88.8 Allergy status to other drugs, medicaments and biological substances
CPT/HCPCS: 36415; 36600; 49083; 70450; 71045; 74177; 80053; 81001; 82042; 82140; 82550; 82553; 82803; 82948; 83605; 83690; 83735; 83874; 83880; 84484; 85025; 85610; 85730; 86850; 86900; 86901; 86927; 87040; 87071; 87088; 87186; 87205; 89051; 92950; 93005; 94660; 99291; 99292; C1751; C1894; J0171; J1170; J1720; J2060; J2543; J3370; J3430; J3490; J7030; J7060; J7070; P9017; P9046; Q9967